=== PATIENT | female | born 2000 | race Caucasian/White ===

== ENCOUNTER 2022-03-08 12:54 | Emergency (ER) | payer OTHER ==
[~2022-03-08] VITALS: Ht 157.5 cm; Wt 72.6 kg
[2022-03-08] MEDS ORDERED: PROAIR RESPICL90 MCG (13:10)
== END 2022-03-08 20:01 | disposition home or self-care (01) ==
LOC: EMR PED 12:54
DX: S09.8XXA Other specified injuries of head, initial encounter (principal); V40.5XXA Car driver injured in collision with pedestrian or animal in traffic accident, initial encounter; Y93.89 Activity, other specified; Y92.411 Interstate highway as the place of occurrence of the external cause; U07.1 COVID-19